=== PATIENT | female | born 1955 | race Caucasian/White ===

== ENCOUNTER 2018-06-08 15:23 | Outpatient (CLI) | payer OTHER ==
--- NOTE | 2018-06-08 16:44 | BD ---
DEXA BONE DENSITOMETRY: (Dual energy X-ray Absorptiometry) Date: 06/08/18 HISTORY: 62-year-old postmenopausal white female for baseline, age-related osteoporosis screening examination. Height: 61 Weight: 128 lbs Age of menopause: 45 years COMPARISON: None available. FINDINGS: The bone mineral density (BMD) is given in grams per square centimeter (g/cm2): LUMBAR SPINE: BMD(g/cm2) T-score Z-score L1: 0.699 -2.6 -1.2 L2: 0.733 -2.7 -1.1 L3: 0.698 -3.5 -1.8 L4: 0.743 -2.9 -1.2 Total: 0.720 -3.0 -1.4 HIP: Femoral neck: 0.527 -2.9 -1.5 Total: 0.748 -1.6 -0.5 FRAX WHO Fracture Risk Assessment Tool: 10 Year Fracture Risk * Major osteoporotic fracture: 14% Hip fracture: 3.5% Reported Risk Factors: [place](), Neck BMD=0.527, BMI=24.2, and secondary osteoporosis * Fracture probability is calculated for an untreated patient. Fracture probability may be lower if the patient has received treatment. IMPRESSION: 1. The mean bone mineral density of the lumbar spine is osteoporotic. Fracture risk is high. 2. The bone mineral density of the femoral neck is osteoporotic. Fracture risk is high. TAD Powers POS: JUAN DAVID
== END 2018-06-08 15:24 | disposition home or self-care (01) ==
LOC: BICMAMMO 15:23
PROVIDERS: ATTEND Student in an Organized Health Care Education/Training Program
DX: Z13.820 Encounter for screening for osteoporosis (principal); M81.0 Age-related osteoporosis without current pathological fracture
CPT/HCPCS: 77080

== ENCOUNTER 2020-09-27 15:21 | Outpatient (CLI) | payer BC, OTHER ==
--- NOTE | 2020-09-27 15:57 | BD ---
Exam: DEXA Bone Density 09/27/20 HISTORY: Postmenopausal screening for osteoporosis. Lumbar Spine: BMD (g/cm2) T-SCORE Z-SCORE L1 0.751 -2.2 -0.6 L2 0.821 -1.9 -0.1 L3 0.833 -2.3 -0.4 L4 0.753 -2.8 -0.9 L1-L4 0.789 -2.3 -0.6 Femoral Neck: 0.543 -2.8 -0.3 Total Femur: 0.798 -1.3 0.0 Impression: Osteoporosis. POS: OFF
== END 2020-09-27 15:22 | disposition home or self-care (01) ==
LOC: BICMAMMO 15:21
PROVIDERS: ATTEND Student in an Organized Health Care Education/Training Program
DX: Z13.820 Encounter for screening for osteoporosis (principal); M81.0 Age-related osteoporosis without current pathological fracture
CPT/HCPCS: 77080